=== PATIENT | male | born 1955 | race African-American/Black ===

== ENCOUNTER 2016-11-30 11:46 | Outpatient (CLI) | payer MEDICAID, MEDICARE ==
[2016-11-30 12:24] LABS: Hemoglobin A1c 5.2 % (4.0-6.0)
[2016-11-30 12:29] LABS: ALT (SGPT) 26 U/L (0-55); AST (SGOT) 22 U/L (5-34); Alkaline Phosphatase 92 U/L (40-150); Anion Gap 12 mmol/L (10-20); BUN (Urea Nitrogen) 10 mg/dL (8.4-25.7); Bilirubin, Total 0.8 mg/dL (0.2-1.2); Calc. Creatinine Clearance 0 mL/min (70-130); Calcium 9.3 mg/dL (7.8-10.44); Carbon Dioxide 27 mmol/L (22-29); Cardiac Risk 2.8 (Less than 4.5); Chloride 100 mmol/L (98-107); Cholesterol 147 mg/dL (< 200 Desired); Estimated GFR-MDRD Greater than 90; Glucose 106 mg/dL (70-105); HDL Cholesterol 52 mg/dL (>60 Neg Risk); LDL Cholesterol, Calculated 84 mg/dL; Potassium 3.6 mmol/L (3.5-5.1); Sodium 135 mmol/L (136-145); Triglycerides 54 mg/dL (Less than 150)
[2016-11-30 12:43] LABS: #Basophils 0.1 thou/uL (0.0-0.2); #Eosinphils 0.1 thou/uL (0.0-0.7); #Lymphocytes 1.6 thou/uL (1.20-3.40); #Monocytes 0.6 thou/uL (0.11-0.59); #Neutrophils 4.9 thou/uL (1.40-6.50); %Basophils 1.2 % (0.0-1.0); %Eosinophils 0.9 % (0.0-10.0); %Monocytes 8.2 % (0.0-10.0); %Neutrophils 67.7 % (42.0-75.0); Hemoglobin 13.8 g/dL (14.0-18.0); Mean Corpuscular HGB CONC 31.9 g/dL (32.0-36.0); Mean Corpuscular Hemoglobin 27.5 pg (27.0-31.0); Mean Corpuscular Volume 86.4 fl (80.0-94.0); Mean Platelet Volume 7.9 fL (7.4-10.4); Platelet Count 255 thou/uL (130-400); RBC Distribution Width 14.1 % (11.5-14.5); Red Blood Cell (RBC) Count 4.99 mill/uL (4.70-6.10); White Blood Cell (WBC) Count 7.2 thou/uL (4.8-10.8)
[2016-11-30 12:47] LABS: Thyroid Stimulating Hormone 0.9778 uIU/mL (0.35-4.94); Vitamin D, 25 Hydroxy 44.6 ng/mL (> 30.0)
== END 2016-11-30 11:47 | disposition home or self-care (01) ==
LOC: MADLABBHPM 11:46
PROVIDERS: ATTEND Family Medicine
DX: I10 Essential (primary) hypertension (principal); E78.5 Hyperlipidemia, unspecified; F29 Unspecified psychosis not due to a substance or known physiological condition; K21.9 Gastro-esophageal reflux disease without esophagitis
CPT/HCPCS: 36415; 80053; 80061; 82306; 83036; 84443; 85025

== ENCOUNTER 2017-09-07 13:43 | Outpatient (CLI) | payer MEDICARE, OTHER ==
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
== END 2017-09-07 13:44 | disposition home or self-care (01) ==
LOC: MADRAD 13:43
PROVIDERS: ATTEND Family Medicine
DX: M54.5 Low back pain (principal); M43.17 Spondylolisthesis, lumbosacral region; M47.896 Other spondylosis, lumbar region; R93.7 Abnormal findings on diagnostic imaging of other parts of musculoskeletal system; Z18.89 Other specified retained foreign body fragments
CPT/HCPCS: 72100

== ENCOUNTER 2020-09-15 09:36 | Outpatient (CLI) | payer MEDICARE, MEDICAID ==
--- NOTE | 2020-09-15 10:33 | RAD ---
LUMBAR SPINE SERIES 3 VIEWS: Date; 09/15/2020 HISTORY: Chronic back pain. COMPARISON: 09/07/2017 study. FINDINGS: The vertebral bodies are normal in height. There are degenerative osteophytic changes along the cours e of the spine with some mild disc narrowing at L2-3. Severe disc narrowing at L5-S1 level is noted a nd a prominent spondylolisthesis of approximately 2.0 cm is seen. Prominent degenerative facet change s are noted. Pedicles are intact. IMPRESSION: Marked arthritic changes of the spine. Severe spondylolisthesis of L5 on S1. There has been some mild progression of the degenerative change as compared to the prior study. POS: [facility]
== END 2020-09-15 09:37 | disposition home or self-care (01) ==
LOC: MADRAD 09:36
PROVIDERS: ATTEND Family Medicine
DX: M54.5 Low back pain (principal); M47.816 Spondylosis without myelopathy or radiculopathy, lumbar region; M43.17 Spondylolisthesis, lumbosacral region; M46.96 Unspecified inflammatory spondylopathy, lumbar region
CPT/HCPCS: 72100

== ENCOUNTER 2022-03-03 10:04 | Outpatient (CLI) | payer MEDICARE, MEDICAID ==
[2022-03-03 13:35] LABS: #Basophils 0.1 thou/uL (0.0-0.2); #Eosinphils 0.1 thou/uL (0.0-0.7); #Lymphocytes 0.7 thou/uL (1.20-3.40); #Monocytes 0.7 thou/uL (0.11-0.59); %Basophils 2.1 % (0.0-1.0); %Eosinophils 0.8 % (0.0-10.0); %Lymphocytes 10.6 % (21.0-51.0); %Monocytes 10.4 % (0.0-10.0); %Neutrophils 76.2 % (42.0-75.0); Hemoglobin 10.5 g/dL (14.0-18.0); Mean Corpuscular HGB CONC 32.2 g/dL (32.0-36.0); Mean Corpuscular Volume 80.6 fL (78.0-98.0); Mean Platelet Volume 7.4 fL (7.4-10.4); Platelet Count 332 thou/uL (130-400); RBC Distribution Width 14.6 % (11.5-14.5); Red Blood Cell (RBC) Count 4.05 mill/uL (4.70-6.10); White Blood Cell (WBC) Count 6.6 thou/uL (4.8-10.8)
[2022-03-03 13:37] LABS: Anion Gap 13 mmol/L (10-20); BUN (Urea Nitrogen) 22 mg/dL (8.4-25.7); Calc. Creatinine Clearance 0 mL/min (70-130); Calcium 7.6 mg/dL (7.8-10.44); Carbon Dioxide 31 mmol/L (23-31); Chloride 97 mmol/L (98-107); Estimated GFR 60; Glucose 91 mg/dL (80-115)
[2022-03-03 14:28] LABS: Potassium 2.6 mmol/L (3.5-5.1)
[2022-03-03 14:30] LABS: Sodium 138 mmol/L (136-145)
== END 2022-03-03 10:05 | disposition home or self-care (01) ==
LOC: MADLAB 10:04 → MADRAD 10:05
PROVIDERS: ATTEND Family Medicine
DX: J20.9 Acute bronchitis, unspecified (principal); R06.09 Other forms of dyspnea; R06.2 Wheezing; R63.5 Abnormal weight gain; M79.89 Other specified soft tissue disorders
CPT/HCPCS: 71046; 80048; 83880; 84443; 85025

== ENCOUNTER 2022-08-04 17:44 | Emergency (ER) | payer MEDICARE, MEDICAID ==
[2022-08-04 19:04] LABS: #Basophils 0.1 thou/uL (0.0-0.2); #Eosinphils 0.2 thou/uL (0.0-0.7); #Lymphocytes 1.4 thou/uL (1.20-3.40); #Monocytes 0.6 thou/uL (0.11-0.59); #Neutrophils 6.6 thou/uL (1.40-6.50); %Basophils 0.7 % (0.0-1.0); %Eosinophils 2.2 % (0.0-10.0); %Lymphocytes 15.8 % (21.0-51.0); %Monocytes 6.6 % (0.0-10.0); %Neutrophils 74.7 % (42.0-75.0); Hemoglobin 8.6 g/dL (14.0-18.0); Mean Corpuscular HGB CONC 33.1 g/dL (32.0-36.0); Mean Corpuscular Hemoglobin 28.4 pg (27.0-31.0); Mean Corpuscular Volume 85.6 fl (78.0-98.0); Mean Platelet Volume 6.7 fL (7.4-10.4); Platelet Count 414 10x3/uL (130-400); RBC Distribution Width 14.5 % (11.5-14.5); Red Blood Cell (RBC) Count 3.03 mill/uL (4.70-6.10); White Blood Cell (WBC) Count 8.9 10x3/uL (4.8-10.8)
[2022-08-04 19:16] LABS: ALT (SGPT) 20 U/L (8-55); AST (SGOT) 28 U/L (5-34); Albumin 1.8 g/dL (3.4-4.8); Alkaline Phosphatase 104 U/L (40-110); Anion Gap 15 mmol/L (10-20); BUN (Urea Nitrogen) 47 mg/dL (8.4-25.7); Bilirubin, Total 0.4 mg/dL (0.2-1.2); Calc. Creatinine Clearance 0 mL/min (70-130); Calcium 7.7 mg/dL (7.8-10.44); Carbon Dioxide 19 mmol/L (23-31); Chloride 111 mmol/L (98-107); Estimated GFR 33; Globulin 2.7 g/dL (2.4-3.5); Glucose 94 mg/dL (80-115); Magnesium 1.8 mg/dL (1.6-2.6); Potassium 4.2 mmol/L (3.5-5.1); Protein, Total 4.5 g/dL (5.8-8.1); Sodium 141 mmol/L (136-145)
[2022-08-04] MEDS ORDERED: Furosemide 40 MG/4 ML VIAL ONE (19:59)
[2022-08-04 20:50] LABS: CKMB 1.9 ng/mL (0-6.6)
[2022-08-04] MEDS ORDERED: Aspirin Chewable 81 MG TAB ONE (21:00)
== END 2022-08-04 22:15 | disposition short-term general hospital (02) ==
LOC: MADERS 17:44
DX: I50.9 Heart failure, unspecified (principal); I49.2 Junctional premature depolarization; N17.9 Acute kidney failure, unspecified; R77.8 Other specified abnormalities of plasma proteins; F17.210 Nicotine dependence, cigarettes, uncomplicated; Z79.82 Long term (current) use of aspirin; Z79.899 Other long term (current) drug therapy
CPT/HCPCS: 71045; 80053; 82553; 83735; 83880; 84484; 85025; 93005; 94760; 96374; J1940

== ENCOUNTER 2022-09-03 04:15 | Outpatient (CLI) | payer MEDICARE, MEDICAID ==
[2022-09-03 04:41] LABS: #Eosinphils 0.2 thou/uL (0.0-0.7); #Lymphocytes 1.9 thou/uL (1.20-3.40); #Monocytes 0.5 thou/uL (0.11-0.59); #Neutrophils 4.7 thou/uL (1.40-6.50); %Basophils 0.4 % (0.0-1.0); %Eosinophils 3.2 % (0.0-10.0); %Lymphocytes 25.4 % (21.0-51.0); %Monocytes 6.9 % (0.0-10.0); %Neutrophils 64.1 % (42.0-75.0); Hemoglobin 9.2 g/dL (14.0-18.0); Mean Corpuscular HGB CONC 32.5 g/dL (32.0-36.0); Mean Corpuscular Hemoglobin 28.1 pg (27.0-31.0); Mean Corpuscular Volume 86.6 fl (78.0-98.0); Mean Platelet Volume 6.5 fL (7.4-10.4); Platelet Count 341 10x3/uL (130-400); RBC Distribution Width 14.5 % (11.5-14.5); Red Blood Cell (RBC) Count 3.26 mill/uL (4.70-6.10); White Blood Cell (WBC) Count 7.3 10x3/uL (4.8-10.8)
[2022-09-03 05:04] LABS: ALT (SGPT) 46 U/L (8-55); AST (SGOT) 32 U/L (5-34); Albumin 1.7 g/dL (3.4-4.8); Alkaline Phosphatase 84 U/L (40-110); Anion Gap 11 mmol/L (10-20); BUN (Urea Nitrogen) 63 mg/dL (8.4-25.7); Bilirubin, Total 0.3 mg/dL (0.2-1.2); Calc. Creatinine Clearance 0 mL/min (70-130); Calcium 7.4 mg/dL (7.8-10.44); Carbon Dioxide 27 mmol/L (23-31); Chloride 113 mmol/L (98-107); Estimated GFR 40; Globulin 1.9 g/dL (2.4-3.5); Glucose 101 mg/dL (80-115); Potassium 3.2 mmol/L (3.5-5.1); Protein, Total 3.6 g/dL (5.8-8.1); Sodium 148 mmol/L (136-145)
== END 2022-09-03 04:16 | disposition home or self-care (01) ==
LOC: MADLAB 04:15
DX: I50.22 Chronic systolic (congestive) heart failure (principal); E87.70 Fluid overload, unspecified
CPT/HCPCS: 80053; 83880; 85025